=== PATIENT | female | born 1950 | race Caucasian/White ===

== ENCOUNTER 2017-03-16 07:46 | Emergency (ER) | payer OTHER ==
[~2017-03-16] VITALS: Ht 160 cm; Wt 56.7 kg
[2017-03-16 07:52] VITALS: BP 136/74
--- NOTE | 2017-03-16 07:58 | NUR ---
PT TO ED DT COUGH AND CONGESTION X2 DAYS. PATIENT IS AFEBRILE. VSS
--- NOTE | 2017-03-16 07:59 | NUR ---
RT NOTIFIED ABOUT BREATHING TREATMENT.
[2017-03-16] MEDS ORDERED: ALBUTEROL FS 2.5 MG/0.5 ML VIAL.NEB NEB ONE (08:00)
[2017-03-16] MEDS ORDERED: IPRATROPIUM NEB FS 0.5 MG/2.5 ML AMPUL.NEB NEB ONE (08:00)
[2017-03-16] MEDS ORDERED: ALBUTEROL FS 2.5 MG/0.5 ML VIAL.NEB ONE (08:01)
[2017-03-16] MEDS ORDERED: IPRATROPIUM NEB FS 0.5 MG/2.5 ML AMPUL.NEB ONE (08:01)
[2017-03-16] MEDS ORDERED: DEXAMETHASONE 1 MG TABLET ONE (08:18)
[2017-03-16] MEDS ORDERED: DEXAMETHASONE 4 MG TABLET ONE (08:18)
[2017-03-16] MEDS ORDERED: DEXAMETHASONE 1 MG TABLET PO ONE (08:30)
== END 2017-03-16 09:22 | disposition home or self-care (01) ==
LOC: ER 07:47
DX: J45.901 Unspecified asthma with (acute) exacerbation (principal); J06.9 Acute upper respiratory infection, unspecified
CPT/HCPCS: 94640; 99283; J8540 ×2

== ENCOUNTER 2018-04-04 03:09 | Emergency (ER) | payer OTHER ==
[~2018-04-04] VITALS: Ht 160 cm; Wt 55.3 kg
--- NOTE | 2018-04-04 03:50 | NUR ---
PT PRESENTED TO THE ER WITH A C/O COUGH WITH CONGESTION. PT HAS HX OF COPD. NO WHEEZES NOTED. BREATH SOUNDS NOTED BILATERALLY. PT IS ON THE MONITOR AND CONTINUOUS PULSE OX. PT'S O2 SAT IS 98% ON RA.
--- NOTE | 2018-04-04 03:54 | NUR ---
DR CONSTANTINO IS AT THE BEDSIDE.
--- NOTE | 2018-04-04 03:58 | NUR ---
LAB DRAW IN PROGRESS AT THE BEDSIDE. INFLUENZA SWAB DONE.
[2018-04-04 04:09] LABS: BASOPHILS # (AUTO) 0.1 /CMM (0.0-0.2); EOSINOPHILS % (AUTO) 7.9 % (0.0-6.0); HEMATOCRIT 40 % (33-45); HEMOGLOBIN 13.4 g/dL (11.5-14.8); LYMPHOCYTES % (AUTO) 14.9 % (20.0-44.0); MEAN CORPUSCULAR HGB CONC 34 g/dl (31.0-36.0); MEAN CORPUSCULAR VOLUME 91 fL (82-100); MONOCYTES # (AUTO) 0.5 /CMM (0.1-1.30); MONOCYTES % (AUTO) 7.9 % (2.0-12.0); NEUTROPHILS # (AUTO) 4.4 /CMM (1.8-8.9); NEUTROPHILS % (AUTO) 68.3 % (43.0-81.0); PLATELET COUNT (AUTO) 233 /CMM (150-450); RED BLOOD CELL COUNT(AUTO) 4.35 MIL/uL (4.0-5.2); WHITE BLOOD COUNT (AUTO) 6.4 K/uL (4.3-11.0)
--- NOTE | 2018-04-04 04:13 | NUR ---
DR CONSTANTINO IS SPEAKING TO RT RE: VERBAL ORDER FOR A BREATHING TX.
[2018-04-04] MEDS ORDERED: IPRATROPIUM NEB FS 0.5 MG/2.5 ML AMPUL.NEB ONE ×2 (04:22→08:46)
[2018-04-04] MEDS ORDERED: ALBUTEROL FS 2.5 MG/3 ML VIAL.NEB ONE ×2 (04:22→08:46)
[2018-04-04 04:26] LABS: CALCIUM, SERUM 9.2 mg/dL (8.5-10.1); CREATININE 0.6 mg/dL (0.6-1.3); POTASSIUM 4.1 mmol/L (3.5-5.1)
[2018-04-04] MEDS ORDERED: ALBUTEROL FS 2.5 MG/3 ML VIAL.NEB CONTNEB ONE (04:30)
[2018-04-04] MEDS ORDERED: predniSONE 20 MG TABLET PO ONE (04:30)
[2018-04-04] MEDS ORDERED: IPRATROPIUM NEB FS 0.5 MG/2.5 ML AMPUL.NEB NEB ONE ×2 (04:30→08:30)
[2018-04-04 04:38] LABS: ALBUMIN 3.7 g/dL (3.4-5.0); BILIRUBIN,DIRECT 0.1 mg/dL (0.0-0.2); BILIRUBIN,TOTAL 0.4 mg/dL (0.2-1.0); TOTAL PROTEIN, SERUM 6.8 g/dL (6.4-8.2)
[2018-04-04] MEDS ORDERED: predniSONE 20 MG TABLET ONE (04:53)
--- NOTE | 2018-04-04 05:00 | NUR ---
PT IS ON A BREATHING TX.
[2018-04-04 05:20] VITALS: BP 96/52
--- NOTE | 2018-04-04 05:39 | NUR ---
CALLED PACO RE: CXR READ
[2018-04-04] MEDS ORDERED: ASPIRIN 325 MG TABLET ONE (05:57)
[2018-04-04] MEDS ORDERED: ASPIRIN 325 MG TABLET PO ONE (06:00)
--- NOTE | 2018-04-04 06:13 | NUR ---
RT ERROR, RT CHARTED ON WRONG PT.
--- NOTE | 2018-04-04 06:15 | NUR ---
PT APPEARS TO BE RESTING COMFORTABLY WITH NO S/S OF PAIN OR DISTRESS.
[2018-04-04] MEDS ORDERED: ENOXAPARIN SODIUM 40 MG/0.4 ML DISP.SYRIN SQ ONE (06:30)
[2018-04-04] MEDS ORDERED: ENOXAPARIN SODIUM 60 MG/0.6 ML DISP.SYRIN SQ ONE (07:15)
--- NOTE | 2018-04-04 07:24 | NUR ---
PT REC'D MEDICATION ORDERED. PT'S HR IS ELEVATED 131. MD NOTIFIED.
[2018-04-04] MEDS ORDERED: LORAZEPAM INJ 2 MG/ML VIAL IV ONE (07:30)
[2018-04-04] MEDS ORDERED: LORAZEPAM INJ 2 MG/ML VIAL ONE (07:42)
--- NOTE | 2018-04-04 07:45 | NUR ---
REPORT GIVEN TO ISABEL GIFFORD FOR LYLE.
[2018-04-04] MEDS ORDERED: ALBUTEROL FS 2.5 MG/3 ML VIAL.NEB NEB ONE (08:30)
[2018-04-04] MEDS ORDERED: AZITHROMYCIN 250 MG TABLET PO ONE (08:30)
[2018-04-04] MEDS ORDERED: AZITHROMYCIN 250 MG TABLET ONE (08:34)
--- NOTE | 2018-04-04 10:09 | NUR ---
Paged [place] pillowcase folder for update
--- NOTE | 2018-04-04 10:37 | NUR ---
Spoke with Ranjeet Khan pillowcase maker. She is attempting transfer to [facility]. Joseph Will call back with updates
--- NOTE | 2018-04-04 12:36 | NUR ---
SPOKE TO COSME, WAREHOUSE ADMINISTRATOR, STATES SHE IS WAITING FOR MAURY PATEL TO CALL BACK WITH BED AVAILABILITY. [phone]
--- NOTE | 2018-04-04 14:28 | NUR ---
PT BEING TRANSFERRED TO [facility] DIRECT ADMIT TO ROOM 114-A RN FOR REPORT
[2018-04-04 14:54] VITALS: BP 106/83
--- NOTE | 2018-04-04 15:38 | NUR ---
Report given to Rena HALL for continuity of care at [facility]
--- NOTE | 2018-04-04 16:13 | NUR ---
PT TRANPORTED TO [facility] IN STABLE CONDITION.
== END 2018-04-04 16:16 | disposition short-term general hospital (02) ==
LOC: ER 03:11 → UNDOADMIN 07:05 → TELE 07:05
DX: I21.4 Non-ST elevation (NSTEMI) myocardial infarction (principal); J44.1 Chronic obstructive pulmonary disease with (acute) exacerbation; Z60.2 Problems related to living alone
CPT/HCPCS: 36415; 71045-TC; 80048-TC; 80076-TC; 83880; 84484-TC; 85025-TC; 85378-TC; 85730-TC; 87081-TC; 87400; J1650; J2060

== ENCOUNTER 2022-03-05 23:41 | Inpatient (IN) | payer OTHER ==
[~2022-03-05] VITALS: Ht 160 cm; Wt 50.8 kg
[2022-03-06] MEDS ORDERED: DILTIAZEM HCL 50 MG IV ONE (00:13)
--- NOTE | 2022-03-06 00:16 | NUR ---
LAC20G LINE PATENT AND INTACT, BLOOD COLLECTED
--- NOTE | 2022-03-06 00:23 | NUR ---
COVID SWAB COLLECTED
[2022-03-06] MEDS ORDERED: DILTIAZEM HCL 50 MG IV IV ONE (00:30)
[2022-03-06] MEDS ORDERED: DILTIAZEM HCL IV 125 MG in IV NS 0.9% 100 ML IV PRN (00:30)
--- NOTE | 2022-03-06 00:34 | NUR ---
PT HR NOW AT 90'S. CONVERTED TO NSR.
[2022-03-06 01:03] LABS: BASOPHILS # (AUTO) 0.1 K/uL (0.0-0.2); BASOPHILS % (AUTO) 0.8 % (0.0-2.0); EOSINOPHILS % (AUTO) 0.1 % (0.0-6.0); HEMATOCRIT 44 % (33-45); HEMOGLOBIN 14.5 g/dL (11.5-14.8); LYMPHOCYTES # (AUTO) 0.5 K/uL (0.8-4.8); LYMPHOCYTES % (AUTO) 7.3 % (20.0-44.0); MEAN CORPUSCULAR HGB CONC 33 g/dl (31.0-36.0); MEAN CORPUSCULAR VOLUME 93 fL (82-100); MONOCYTES % (AUTO) 0.6 % (2.0-12.0); NEUTROPHILS # (AUTO) 6.6 K/uL (1.8-8.9); NEUTROPHILS % (AUTO) 91.2 % (43.0-81.0); PLATELET COUNT (AUTO) 262 K/uL (150-450); RED BLOOD CELL COUNT(AUTO) 4.75 MIL/uL (4.0-5.2); WHITE BLOOD COUNT (AUTO) 7.3 K/uL (4.3-11.0)
--- NOTE | 2022-03-06 01:07 | NUR ---
PT HR BACK UP TO 138. CARDIZEM DRIP STARTED AT 5MG/HR. MADE AWARE
[2022-03-06] MEDS ORDERED: DILTIAZEM HCL 25 MG IV ONE (01:50)
[2022-03-06] MEDS ORDERED: AMIODARONE 150 MG/3 ML VIAL IV ONE ×2 (01:50→01:57)
--- NOTE | 2022-03-06 01:51 | NUR ---
Cardizem Drip stopped. Pt's Bp 70/62. made aware. 1L NS started.
[2022-03-06 01:59] LABS: ALANINE AMINOTRANSFERASE 47 U/L (12-78); ALBUMIN 3.8 g/dL (3.4-5.0); ALKALINE PHOSPHATASE 61 U/L (46-116); ASPARTATE AMINOTRANSFERASE 30 U/L (15-37); BILIRUBIN,DIRECT 0.3 mg/dL (0.0-0.2); BILIRUBIN,TOTAL 1.2 mg/dL (0.2-1.0); CALCIUM, SERUM 9.1 mg/dL (8.5-10.1); CARBON DIOXIDE 27 mmol/L (21-32); CHLORIDE 94 mmol/L (98-107); CREATININE 0.8 mg/dL (0.6-1.3); GLUCOSE 218 mg/dL (74-106); POTASSIUM 4.6 mmol/L (3.5-5.1); SODIUM SERUM 132 mmol/L (136-145); TOTAL PROTEIN, SERUM 7.2 g/dL (6.4-8.2); UREA NITROGEN, BLOOD 20 mg/dL (7-18)
[2022-03-06] MEDS ORDERED: IV NS 0.9% 1,000 ML BAG IV ONE ×2 (02:00)
[2022-03-06] MEDS ORDERED: AMIODARONE 150 MG in IV D5W 100 ML IV ONE (02:00)
[2022-03-06] MEDS ORDERED: AMIODARONE 450 MG in IV D5W 241 ML IV PRN (02:00)
[2022-03-06] MEDS ORDERED: IOHEXOL-350 100 ML VIAL IV ONE (02:12)
[2022-03-06] MEDS ORDERED: IV NS 0.9% 250 ML IV ONE (02:12)
--- NOTE | 2022-03-06 02:13 | NUR ---
PT HR NOW NSR 75. WILL ATIF BRYANT MD MADE AWARE
--- NOTE | 2022-03-06 02:43 | NUR ---
BROUGHT TO CT AND BACK
--- NOTE | 2022-03-06 03:10 | NUR ---
URINE SPECIMEN SENT TO LAB
[2022-03-06 03:53] LABS: BILIRUBIN,URINE NEGATIVE (NEGATIVE); COLOR,URINE YELLOW (YELLOW); LEUKOCYTE ESTERASE ,URINE NEGATIVE (NEGATIVE); NITRITE, URINE NEGATIVE (NEGATIVE); PH,URINE 6.5 (5.0-8.0); PROTEIN,URINE NEGATIVE (NEGATIVE); UGLUCOSE NEGATIVE (NEGATIVE); UROBILINOGEN,URINE 0.2 EU/dL (0.2)
--- NOTE | 2022-03-06 05:15 | NUR ---
Pt transfered per ACLS protocol
--- NOTE | 2022-03-06 05:15 | NUR ---
Report given to Agata HALL
--- NOTE | 2022-03-06 05:30 | NUR ---
0530 Admitted from ER 71 year old female via gurney with Dx of Afib RVR. Patient is awake and oriented x4. Transferred to bed and connected to case monitor. Noted in NSR rate 70s. Vital signs checked and recorded. Admission care and skin assessment done. No skin breakdown noted. Right chest wall port a cath with intact skin. Left AC PIV intact with no signs of infiltration noted. Patient with c/o mild SOB during care, connected to O2 at 2LPM NC. HOB elevated for maximum oxygenation. Oriented to room. Call light placed within reach and instructed to call for assistance.
[2022-03-06 05:40] VITALS: BP 150/54
--- NOTE | 2022-03-06 06:05 | NUR ---
[address] Ray and notified him of patient's admission to unit and obtained orders. Orders noted and carried out.
[2022-03-06] MEDS ORDERED: ONDANSETRON HCL/PF 4 MG/2 ML VIAL IV PRN (06:30)
[2022-03-06] MEDS ORDERED: ACETAMINOPHEN 325 MG TABLET PO PRN (06:30)
--- NOTE | 2022-03-06 07:37 | NUR ---
RN OPENING NOTES RECEIVED REPORT FROM MARQUEZ HALL. PATIENT ON 2 LITERS NASAL CANULA OXYGEN SATURATION WITHIN NORMAL LIMITS.TELEMETRY READING SHOWING NORMAL SINUS RHYTHM. IV ACCESS ON LEFT ANTECUBITAL. RIGHT CHEST WALL PORTACATH NOTED. SAFETY MEASURES IMPLEMENTED. WILL CONTINUE PLAN OF CARE AND ANTICIPATE NEEDS.
[2022-03-06 08:00] VITALS: BP 108/43
[2022-03-06 08:10] LABS: BASOPHILS % (AUTO) 0.5 % (0.0-2.0); CALCIUM, SERUM 8.2 mg/dL (8.5-10.1); CARBON DIOXIDE 31 mmol/L (21-32); CHLORIDE 104 mmol/L (98-107); CREATININE 0.5 mg/dL (0.6-1.3); EOSINOPHILS % (AUTO) 0.2 % (0.0-6.0); GLUCOSE 89 mg/dL (74-106); HEMATOCRIT 39 % (33-45); HEMOGLOBIN 12.9 g/dL (11.5-14.8); LYMPHOCYTES # (AUTO) 0.3 K/uL (0.8-4.8); LYMPHOCYTES % (AUTO) 10.5 % (20.0-44.0); MEAN CORPUSCULAR HGB CONC 33 g/dl (31.0-36.0); MEAN CORPUSCULAR VOLUME 92 fL (82-100); MONOCYTES % (AUTO) 0.9 % (2.0-12.0); NEUTROPHILS # (AUTO) 2.3 K/uL (1.8-8.9); NEUTROPHILS % (AUTO) 87.9 % (43.0-81.0); PLATELET COUNT (AUTO) 175 K/uL (150-450); POTASSIUM 4.6 mmol/L (3.5-5.1); RED BLOOD CELL COUNT(AUTO) 4.21 MIL/uL (4.0-5.2); SODIUM SERUM 138 mmol/L (136-145); UREA NITROGEN, BLOOD 14 mg/dL (7-18); WHITE BLOOD COUNT (AUTO) 2.6 K/uL (4.3-11.0)
[2022-03-06] MEDS ORDERED: UMEC1BLS INH (11:32)
[2022-03-06] MEDS ORDERED: ALBU18HF2 IH (11:32)
[2022-03-06 12:00] VITALS: BP 123/54
[2022-03-06] MEDS ORDERED: IPRATROPIUM NEB FS 0.5 MG/2.5 ML AMPUL.NEB NEB PRN (12:00)
[2022-03-06] MEDS ORDERED: LEVALBUTEROL HCL NEB 1.25 MG/0.5 ML VIAL.NEB NEB PRN (12:00)
[2022-03-06] MEDS: ENOXAPARIN SODIUM 60 MG/0.6 ML DISP.SYRIN SQ SCH ×2 (12:00→12:11)
--- NOTE | 2022-03-06 12:27 | NUR ---
PATIENT REFUSED ENOXAPRIN. THE PATIENT STATES THAT SHE IS "PRETTY SURE" THAT SHE SHOULD NOT BE TAKING BLOOD THINNERS ALONG WITH HER CHEMOTHERAPY. PROVIDED EDUCATION ON THE IMPORTANCE OF BLOOD THINNERS, ESPECIALLY WITH HER HISTORY OF A-FIB. THE PATIENT STATES SHE WOULD RATHER "NOT CHANCE IT" WHEN TAKING THE BLOOD THINNER, JUST TO MAKE SURE IT DOES NOT INTERRUPT WITH HER CHEMOTHERAPY.
[2022-03-06 12:33] LABS: THYROID STIMULATING HORMONE 0.265 uIU/mL (0.358-3.74)
[2022-03-06 16:00] VITALS: BP 123/66
[2022-03-06] MEDS: APIXABAN 5 MG TABLET PO SCH (16:01)
[2022-03-06] MEDS: DRONEDARONE HYDROCHLORIDE 400 MG TABLET PO SCH (17:33)
--- NOTE | 2022-03-06 18:42 | NUR ---
RN CLOSING NOTES PATIENT ON 2 LITERS NASAL CANULA OXYGEN SATURATION WITHIN NORMAL LIMITS.TELEMETRY READING SHOWING NORMAL SINUS RHYTHM. IV ACCESS ON LEFT ANTECUBITAL. RIGHT CHEST WALL PORTACATH NOTED. SAFETY MEASURES IMPLEMENTED. WILL ENDORSE TO NIGHTSHIFT RN FOR CONTINUATION OF CARE.
--- NOTE | 2022-03-06 19:48 | NUR ---
RN OPENING NOTE PT FOUND SLEEPING IN L LATERAL POSITION. SKIN IS WARM AND DRY. RESPIRATIONS EVEN AND UNLABORED ON NC 2LPM. L AC 20G INTACT AND FLUSHED. NO ACUTE SIGNS OF DISTRESS. DENIES OTHER NEEDS AT THIS TIME. SAFETY PRECAUTIONS IN PLACE. BED LOCKED AND AT LOWEST LEVEL WITH 2 RAILS UP. CALL LIGHT WITHIN REACH.
[2022-03-06 20:00] VITALS: BP 122/69
[2022-03-06] MEDS: ALBUTEROL FS 2.5 MG/3 ML VIAL.NEB NEB PRN (20:48)
[2022-03-07] VITALS: BP 109/64
[2022-03-07] MEDS: ALBUTEROL FS 2.5 MG/3 ML VIAL.NEB NEB PRN (01:52)
[2022-03-07 04:00] VITALS: BP 119/74
--- NOTE | 2022-03-07 06:46 | NUR ---
RN CLOSING NOTE PT A&OX4. SKIN IS WARM AND DRY. RESPIRATIONS EVEN AND UNLABORED. SR ON DRUM PULLER. L AC 20 G AND R CHEST HUMBLE-CATH INTACT. PT REQUESTED A BREATHING TX LAST NIGHT AND WAS PROVIDED. NO ACUTE SIGNS OF DISTRESS. DENIES OTHER NEEDS AT THIS TIME. BED LOCKED AND AT LOWEST LEVEL WITH 2 RAILS UP. CALL LIGHT WITHIN REACH.
--- NOTE | 2022-03-07 07:20 | NUR ---
EQUITIES TRADER OPENING NOTES: RECEIVED PATIENT ASLEEP BUT EASILY AROUSES TO VOICE AND TACTILE STIMULI. PATIENT IS ALERT, ORIENTED X 4. NO RESPIRATORY DISTRESS NOTED, BREATHING EVEN AND UNLABORED. ON OXYGEN WITH 2L/MIN VIA N/C WITH OXYGEN SATURATION OF 98%. ON SR ON TELE MONITOR WITH HR OF 87 ON. IV SITE ON LEFT ANTECUBITAL AREA INTACT, PATENT, FLUSHES WELL WITH NO S/S INFILTRATION NOTED. ALSO HAS RIGHT CHEST PORTACATH IN PLACE, INTACT WITH DRESSING DRY AND CLEAN. ALL SAFETY MEASURES IN PLACE. BED LOCKED AND IN LOWEST POSITION WITH BED ALARM ON. CALL LIGHT WITHIN REACH. WILL CONTINUE TO MONITOR PATIENT THROUGHOUT SHIFT
[2022-03-07] MEDS ORDERED: ALBUTEROL FS 2.5 MG/3 ML VIAL.NEB NEB PRN (07:57)
[2022-03-07 08:00] VITALS: BP 114/70
[2022-03-07] MEDS: DRONEDARONE HYDROCHLORIDE 400 MG TABLET PO SCH ×2 (08:30→16:29)
[2022-03-07] MEDS: APIXABAN 5 MG TABLET PO SCH ×2 (08:31→16:30)
[2022-03-07] MEDS ORDERED: DRON400T6 PO (10:01)
[2022-03-07] MEDS ORDERED: APIX5TAB PO (10:01)
[2022-03-07 10:47] LABS: CALCIUM, SERUM 8.5 mg/dL (8.5-10.1); CREATININE 0.6 mg/dL (0.6-1.3); POTASSIUM 4.1 mmol/L (3.5-5.1)
[2022-03-07 12:00] VITALS: BP 118/76
--- NOTE | 2022-03-07 14:40 | NUR ---
CALLED DR. JUAREZ AND INFORMED OF WBC OF 0.7 WITH AN ORDER FOR NEUPOGEN 5 YUDY/KG ONE TIME BEFORE THE PATIENT LEAVES TODAY AND TO FOLLOW UP WITH THE ONCOLOGIST TOMORROW. ORDER NOTED AND CARRIED OUT.
[2022-03-07 14:55] LABS: EOSINOPHILS % (AUTO) 2.8 % (0.0-6.0); HEMATOCRIT 40 % (33-45); HEMOGLOBIN 13.5 g/dL (11.5-14.8); LYMPHOCYTES # (AUTO) 0.4 K/uL (0.8-4.8); LYMPHOCYTES % (AUTO) 53.9 % (20.0-44.0); MEAN CORPUSCULAR HGB CONC 34 g/dl (31.0-36.0); MEAN CORPUSCULAR VOLUME 91 fL (82-100); MONOCYTES % (AUTO) 5.4 % (2.0-12.0); NEUTROPHILS # (AUTO) 0.2 K/uL (1.8-8.9); NEUTROPHILS % (AUTO) 34.9 % (43.0-81.0); PLATELET COUNT (AUTO) 207 K/uL (150-450); RED BLOOD CELL COUNT(AUTO) 4.37 MIL/uL (4.0-5.2)
[2022-03-07 14:57] LABS: WHITE BLOOD COUNT (AUTO) 0.7 K/uL (4.3-11.0)
[2022-03-07] MEDS ORDERED: FILGRASTIM (300 MCG) 300 MCG/ML VIAL SQ SCH (15:00)
[2022-03-07 16:00] VITALS: BP 104/60
[2022-03-07] MEDS ORDERED: TBO-FILGRASTIM 300 MCG/0.5 ML SYRINGE SQ ONE (16:00)
[2022-03-07 17:28] LABS: LYMPHOCYTES % (MANUAL) 50 % (16-48); MONOCYTES % (MANUAL) 5 % (0-11.0); NEUTROPHILS % (MANUAL) 40 (42-76)
[2022-03-07 17:29] LABS: BASOPHILS % (MANUAL) 1 % (0.0-2.0); EOSINOPHILS % (MANUAL) 4 % (0-4)
--- NOTE | 2022-03-07 17:59 | NUR ---
PATIENT'S FRIEND KAVITA CAME BY TO COMPUTER SYSTEMS INFORMATION DIRECTOR THE PATIENT. PROVIDED DISCHARGE PAPERWORK TO THE PATIENT AND REITERATED THE DOCTOR'S INSTRUCTION FOR HER TO FOLLOW UP WITH HER ONCOLOGIST TOMORROW, 03/08/22. PATIENT ON ST ON TELE MONITOR WITH HR OF 105. REMOVED TELE MONITOR AND REMOVED ID BAND. DISCONTINUED IV AND NOTED WITH INTACT HUB. PATIENT RAJESH IN NO ACUTE DISTRESS NOTED. NO C/O PAIN OR DISCOMFORT NOTED. PATIENT WAS TAKEN TO THE LOBBY VIA WHEELCHAIR AND PATIENT APPRECIATED THE HELP.
--- NOTE | 2022-03-07 18:45 | NUR ---
FAXED PATIENT'S PRESCRIPTION TO [facility] @ .
== END 2022-03-07 18:40 | disposition home health service (06) | DRG 309 ==
LOC: ER 03-06 00:28 → MEDSG1 03-06 04:32 → UNDOADMIN 03-06 04:32 → MEDSG1 03-06 05:29 → TELE-TD 03-06 05:29 → TELE1 03-06 06:18
PROVIDERS: ADMIT Internal Medicine; ATTEND Internal Medicine
DX: I48.0 Paroxysmal atrial fibrillation (principal); E87.1 Hypo-osmolality and hyponatremia; Z68.1 Body mass index [BMI] 19.9 or less, adult; E86.0 Dehydration; J44.9 Chronic obstructive pulmonary disease, unspecified; C50.919 Malignant neoplasm of unspecified site of unspecified female breast; R63.0 Anorexia; Z20.822 Contact with and (suspected) exposure to COVID-19; I34.1 Nonrheumatic mitral (valve) prolapse; D70.1 Agranulocytosis secondary to cancer chemotherapy; T45.1X5A Adverse effect of antineoplastic and immunosuppressive drugs, initial encounter; Y92.239 Unspecified place in hospital as the place of occurrence of the external cause
CPT/HCPCS: 36415; 70450-TC; 71045-TC; 80048-TC; 80061-TC; 80076-TC; 84439-TC; 84443-TC; 84484-TC; 85025-TC; 85730-TC; 93307-TC; C9803; G0378; J0282; J1442; J1650; J3490; J7030; J7050; J7060; Q9967

== ENCOUNTER 2023-01-20 21:40 | Emergency (ER) | payer OTHER ==
[~2023-01-20] VITALS: Ht 160 cm; Wt 44.0 kg
[~2023-01-20 21:40] MED LIST: ALBU18HF2 IH; APIX5TAB PO; DRON400T6 PO; UMEC1BLS INH
[2023-01-20 22:12] LABS: BASOPHILS # (AUTO) 0.1 K/uL (0.0-0.2); BASOPHILS % (AUTO) 1.5 % (0.0-2.0); EOSINOPHILS # (AUTO) 0.4 K/uL (0.0-0.7); EOSINOPHILS % (AUTO) 12.1 % (0.0-6.0); HEMATOCRIT 42 % (33-45); LYMPHOCYTES # (AUTO) 1.1 K/uL (0.8-4.8); LYMPHOCYTES % (AUTO) 29.2 % (20.0-44.0); MEAN CORPUSCULAR HEMOGLOBIN 31 PG (26.0-33.0); MEAN CORPUSCULAR HGB CONC 33 g/dl (31.0-36.0); MEAN CORPUSCULAR VOLUME 92 fL (82-100); MONOCYTES # (AUTO) 0.4 K/uL (0.1-1.30); MONOCYTES % (AUTO) 11.4 % (2.0-12.0); NEUTROPHILS # (AUTO) 1.7 K/uL (1.8-8.9); NEUTROPHILS % (AUTO) 45.8 % (43.0-81.0); PLATELET COUNT (AUTO) 190 K/uL (150-450); RED BLOOD CELL COUNT(AUTO) 4.56 MIL/uL (4.0-5.2); RED CELL DISTRIBUTION WIDTH 13.6 % (11.5-15.0); WHITE BLOOD COUNT (AUTO) 3.6 K/uL (4.3-11.0)
[2023-01-20 22:25] VITALS: O2SAT 98
[2023-01-20] MEDS ORDERED: ALBUTEROL FS 2.5 MG/3 ML VIAL.NEB ONE (22:26)
[2023-01-20] MEDS ORDERED: IPRATROPIUM NEB FS 0.5 MG/2.5 ML AMPUL.NEB ONE (22:26)
[2023-01-20 22:27] LABS: ALANINE AMINOTRANSFERASE 21 U/L (12-78); ALBUMIN 4.4 g/dL (3.4-5.0); ALKALINE PHOSPHATASE 89 U/L (46-116); ASPARTATE AMINOTRANSFERASE 13 U/L (15-37); BILIRUBIN,DIRECT 0.1 mg/dL (0.0-0.2); BILIRUBIN,TOTAL 0.4 mg/dL (0.2-1.0); CALCIUM, SERUM 9.8 mg/dL (8.5-10.1); CARBON DIOXIDE 29 mmol/L (21-32); CHLORIDE 105 mmol/L (98-107); CREATININE 0.6 mg/dL (0.6-1.3); GLUCOSE 115 mg/dL (74-106); POTASSIUM 3.5 mmol/L (3.5-5.1); SODIUM SERUM 143 mmol/L (136-145); TOTAL PROTEIN, SERUM 7.7 g/dL (6.4-8.2); UREA NITROGEN, BLOOD 14 mg/dL (7-18)
[2023-01-20 22:29] LABS: LACTIC ACID 1.4 mmol/L (0.4-2.0)
[2023-01-20] MEDS ORDERED: ALBUTEROL FS 2.5 MG/3 ML VIAL.NEB NEB ONE (22:30)
[2023-01-20] MEDS ORDERED: IPRATROPIUM NEB FS 0.5 MG/2.5 ML AMPUL.NEB NEB ONE (22:30)
[2023-01-20 22:40] VITALS: O2SAT 100
[2023-01-20] MEDS ORDERED: IOHEXOL-350 100 ML VIAL IV ONE (23:01)
[2023-01-20] MEDS ORDERED: CT SWABBABLE VALVE TRANS SET 1 EA INFUS.SET MC ONE (23:02)
[2023-01-20] MEDS ORDERED: IV NS 0.9% 250 ML IV ONE (23:02)
[2023-01-20] MEDS ORDERED: AZIT250T13 PO (23:59)
[2023-01-21 00:08] VITALS: BP 147/64; TEMP 97.8; O2SAT 100
== END 2023-01-21 00:09 | disposition home or self-care (01) ==
LOC: ER 21:44
DX: J44.1 Chronic obstructive pulmonary disease with (acute) exacerbation (principal); R06.02 Shortness of breath; R00.0 Tachycardia, unspecified; Z85.3 Personal history of malignant neoplasm of breast; Z60.2 Problems related to living alone; Z20.822 Contact with and (suspected) exposure to COVID-19
CPT/HCPCS: 99285; 71045; 87426; 93005 ×2; 87804 ×2; 85025; 80048; 87040 ×2; 83605; 80076; 85378; 36415; 84484; 83880; 94640; J7050; Q9967; C9803